=== PATIENT | male | born 1960 | race Two or more races ===

== ENCOUNTER 2016-08-28 13:30 | Inpatient (IN) | payer OTHER ==
--- NOTE | ~2016-08-28 | DS ---
Discharge Summary [id number] [place] [address] NAME: NIKOLE DUVALL : 64 STATUS : DIS IN PAT#: [id number] AGE: 55 ADM/REG DATE : 08/28/16 MR#: [id number] REPORT SERV DATE: 09/03/16 DICTATED BY: EDUARDA BELTRAN DATE: 09/02/16 REPORT STATUS : Draft TRANSCRIBED BY: LUCIA DATE: 09/02/16 ADMISSION DATE: 08/28/2016 DISCHARGE DATE: 09/02/2016 DIAGNOSES: 1. Acute systolic congestive heart failure exacerbation/dilated cardiomyopathy with ejection fraction of 15-20%. 2. Acute pulmonary edema, resolved. 3. Atrial fibrillation with rapid ventricular response. CONSULTANTS: 1. [facility], Dr. Leiva, and Nephrology, Dr. Terrence Wilcox. 2. Hospitalists, Dr. Gino Byrne, Dr. Sofía Thao, and Dr. Beltran. FOLLOWUP: The patient is to follow up with the primary care in two weeks and to follow up with Dr. Leiva, dog licenser, in three weeks. The patient should follow up with Nephrology associates in one week for labs. DISCHARGE MEDICATIONS: Eliquis 5 mg p.o. b.i.d., Lipitor 40 mg p.o. at bedtime, amiodarone 200 mg p.o. b.i.d., Coreg 6.25 mg p.o. b.i.d., Aldactone 25 mg p.o. daily, torsemide 10 mg p.o. b.i.d., albuterol MDI one to two puffs inhaled every four hours p.r.n., and Exelon. HOSPITAL COURSE: Please see H and P and discharge summary from some Gino Byrne. This is a 55 years old male with a past medical history of hypertension, has not followed up with the primary care physician in years, presented to [facility] with the complaint of shortness of breath, dyspnea on exertion, and edema of the lower extremities, found to be hypertensive and admitted with the acute onset of CHF exacerbation with some atrial fibrillation with RVR. The patient recently got over a viral infection prior to his admission. He was transferred to [facility] for cardiac cath per Cardiology recommendations. The patient had findings of moderate to severe LAD and RCA stenosis with a recommendation of medical management per Cardiology staff. He did have an echocardiogram with findings of ejection fraction of 15-20% with severely dilated left ventricle and right ventricle and biatrial dilatation. The patient also had findings of small free-flowing bilateral pleural effusions on CTA while at [facility] but no evidence of PE. The patient was diuresed, however, developed some acute kidney injury and Nephrology was consulted. The patient was seen by Dr. Wilcox, who recommended to withhold on any ARB or KASEY inhibitors considering the patient having low normal blood pressures as well as to preserve renal function. Also his diuretics were decreased. The patient's renal function improved. He was not discharged with an KASEY or ARB secondary to the patient's blood pressure intolerant at this time and also to preserve it, protect renal function. I tend to care for this patient initiating on 09/02/2016. Therefore, please refer to summaries by Dr. Byrne for further details. The patient was also was admitted to Dr. Sofía Thao at [facility]. At the time of discharge, creatinine had decreased from 1.6 down to 1.39, and the patient was approved for discharge by Nephrology as well as Cardiology. Also, the patient was educated on the appropriate AHA diet and daily weight and strict I's and O's at home, and the patient was discharged to home in stable condition to Discharge Summary [address] [address] NAME: NIKOLE DUVALL : 64 STATUS : DIS IN PAT#: [id number] AGE: 55 ADM/REG DATE : 08/28/16 MR#: [id number] REPORT SERV DATE: 09/03/16 DICTATED BY: EDUARDA BELTRAN DATE: 09/02/16 REPORT STATUS : Draft TRANSCRIBED BY: MODL DATE: 09/02/16 follow up as an outpatient. [facility]/LUCIA Eduarda Beltran M.D. / [id number] CC: Eduarda Beltran M.D. Terrence Wilcox M.D. Lawrence Leiva M.D.
--- NOTE | ~2016-08-28 | CN ---
Consultation Report [facility] [address] [place]. [address] NAME: NIKOLE DUVALL : 64 STATUS : ADM IN [facility]#: [id number] AGE: 55 ADM/REG DATE : 08/28/16 MR#: [id number] REPORT SERV DATE: 09/01/16 DICTATED BY: RAJ OLIVIA DATE: 09/01/16 REPORT STATUS : Draft TRANSCRIBED BY: MODL DATE: 09/01/16 NEPHROLOGY CONSULT DATE OF CONSULTATION: 09/01/2016 REASON FOR CONSULT: Worsening kidney function. HISTORY OF PRESENT ILLNESS: Mr. Duvall is a 55-year-old male, who had a creatinine of 1.2 on presentation to [facility] on 08/27/2016. No previous renal disease noted. He presented with a one-week history of URI symptoms with dyspnea, edema, and orthopnea prompting admission. He was found to be quite volume overloaded and on 08/27/[address] angiogram of the chest with 80 mL of contrast. On 08/28/2016, his creatinine was 1.3 at which time he was transferred to [facility] and underwent cardiac catheterization with 50 mL of contrast. This showed nonobstructive CAD with EF of 15% to 20%. On 08/30/2016, creatinine was 1.4, yesterday creatinine 1.5, today creatinine 1.6. He was started on Entresto yesterday in combination with oral Demadex and Aldactone. He remains on IV Lasix twice a day. PAST MEDICAL HISTORY: 1. New diagnosis of acute congestive heart failure and paroxysmal atrial fibrillation. 2. History of asthma. MEDICATIONS: Home medications included Claritin p.r.n., Indocin, and albuterol inhaler. Here in the hospital amiodarone 400 mg b.i.d., Eliquis 5 mg b.i.d., Lipitor 40 mg h.s., Coreg 6.25 mg b.i.d., Lasix 20 mg IV b.i.d., Protonix, potassium, Entresto, Aldactone 12.5 mg daily, Demadex 10 mg daily. FAMILY HISTORY: Noncontributory to present admission. SOCIAL HISTORY: Nonsmoker. . Works at the [employer]. REVIEW OF SYSTEMS: See HPI for details. PHYSICAL EXAMINATION: VITAL SIGNS: Temperature 96.4, pulse 69, respirations 16, blood pressure 99/69, 92% saturation room air. 570 mL of intake with 3550 mL of urine output. GENERAL: He is a very pleasant male, who is awake, alert, oriented, cooperative with the exam. Good historian. Sitting up in a chair. Eating lunch. NEURO: Grossly nonfocal. HEENT: Sclerae without icterus. Conjunctivae not injected. Oropharynx is clear. NECK: JVD 8 to 10 cm. He has faint bilateral crackles at both bases without dyspnea or tachypnea on room air. Consultation Report [place] [id number] [facility] [place]. [address] NAME: NIKOLE DUVALL : 64 STATUS : ADM IN [facility]#: [id number] AGE: 55 ADM/REG DATE : 08/28/16 MR#: [id number] REPORT SERV DATE: 09/01/16 DICTATED BY: RAJ OLIVIA DATE: 09/01/16 REPORT STATUS : Draft TRANSCRIBED BY: LUCIA DATE: 09/01/16 CARDIOVASCULAR: Regular rate and rhythm. 2/6 murmur. ABDOMEN: Soft, nontender, nondistended. Bowel sounds present throughout. No rebound or guarding. EXTREMITIES: He has 1 to 2+ pitting bilateral ankle edema to the knees. SKIN: Without rash. : Deferred. There is no Centeno catheter in place. MUSCULOSKELETAL: Shows no active tenosynovitis or gout. PSYCH: Mood and affect are appropriate. LABORATORY DATA: Sodium 142, potassium 3.7, bicarb 28, BUN 32, creatinine 1.6, GFR 47 mL/minute. Calcium 8.9, magnesium 2.2. BNP 483. Albumin 3.3. White count 6.9, hemoglobin 13.7, platelets 225,000. Echo, EF 15% to 20% with RVSP 40 mmHg. ASSESSMENT AND PLAN: Mr. Duvall has developed acute systolic congestive heart failure likely viral cardiomyopathy in the setting of pulmonary hypertension, paroxysmal atrial fibrillation, hypotension, suspected chronic kidney disease, and superimposed acute kidney injury. Baseline creatinine was 1.2 on admission. I suspect he has multifactorial acute kidney injury related to contrast with CTA angiogram on 08/27/2016 and cardiac catheterization on 08/28/2016 in combination with medications, diuretics, Entresto, and cardiorenal syndrome. Also has relative hypotension, which may be exacerbating renal hypoperfusion. Stop Entresto with relative hypotension. Stop IV Lasix as he is already taking oral Demadex. Increase oral diuretics. His blood pressure at this point is too low for afterload reduction, but would consider hydralazine and nitroglycerin rather than KASEY inhibitor or ARB until renal function has improved. We will defer to the Cardiology Service. Supportive care. Watch labs. No plans for renal imaging at this time. We will follow with you. Appreciate consult. [facility]/MODL Raj Olivia M.D. / [id number] CC: Sofía Thao M.D.
[~2016-08-28 13:30] MED LIST: ALBUTEROL5 INH; ALEVE220 MG PO; CLARIT10 PO; HYZAAR 100/25 T1 TAB PO; INDO50 PO; PROVHFA INH
[2016-08-29 03:31] LABS: BASOPHILS 0.5 %; BASOPHILS ABSOLUTE 0.03 10/3/uL (0.0-0.16); EOSINOPHILS 3.5 %; EOSINOPHILS ABSOLUTE 0.23 10/3/uL (0.0-0.53); HEMATOCRIT 39.6 % (40.0-51.0); HEMOGLOBIN 13.2 g/dL (13.6-17.8); IMMATURE GRANULOCYTES 0.6 %; IMMATURE GRANULOCYTES ABSOLUTE 0.04 10/3/uL (0.0-0.11); LYMPHOCYTES 23.9 %; LYMPHOCYTES ABSOLUTE 1.56 10/3/uL (0.67-4.30); MANUAL DIFF NO %; MEAN CORPUS HGB CONC 33.3 g/dL (32.0-36.0); MEAN CORPUSCULAR HEMOGLOB 31.4 pg (26.0-34.0); MEAN CORPUSCULAR VOLUME 94.3 fL (80-100); MONOCYTES 8.6 %; MONOCYTES ABSOLUTE 0.56 10/3/uL (0.21-1.20); NEUTROPHILS 62.9 %; NEUTROPHILS ABSOLUTE 4.11 10/3/uL (2.02-8.40); PLATELET COUNT 229 10/3/uL (150-400); RBC DISTRIBUTION WIDTH 13.8 % (12.0-16.0); WHITE BLOOD CELLS 6.5 10/3/uL (4.5-10.5)
[2016-08-29 03:41] LABS: ALBUMIN 3.3 G/DL (3.5-5.0); ALKALINE PHOSPHATASE 81 U/L (45-117); BUN (BLOOD UREA NITROGEN) 19 MG/DL (6-23); CALCIUM, SERUM 8.4 MG/DL (8.5-10.4); CHLORIDE, SERUM 105 MMOL/L (96-112); CO2 (CARBON DIOXIDE) 27 MMOL/L (24-34); CREATININE 1.22 MG/DL (0.70-1.30); GFR AFRICAN AMERICAN 78 ML/MIN (>=60); GFR NON AFRICAN AMERICAN 67 ML/MIN (>=60); GLOBULIN 3.2 G/DL (2.5-4.1); GLUCOSE, SERUM 122 MG/DL (60-99); POTASSIUM, SERUM 3.8 MMOL/L (3.5-5.3); SGOT(AST) 29 U/L (5-40); SGPT(ALT) 67 U/L (5-65); SODIUM, SERUM 142 MMOL/L (135-148); TOTAL BILIRUBIN 0.9 MG/DL (0-1.2); TOTAL PROTEIN 6.5 G/DL (6.0-8.5)
[2016-08-30 07:12] LABS: BASOPHILS 0.4 %; BASOPHILS ABSOLUTE 0.03 10/3/uL (0.0-0.16); EOSINOPHILS ABSOLUTE 0.22 10/3/uL (0.0-0.53); HEMATOCRIT 43.4 % (40.0-51.0); HEMOGLOBIN 14.2 g/dL (13.6-17.8); IMMATURE GRANULOCYTES 0.1 %; IMMATURE GRANULOCYTES ABSOLUTE 0.01 10/3/uL (0.0-0.11); LYMPHOCYTES 28.2 %; LYMPHOCYTES ABSOLUTE 2.04 10/3/uL (0.67-4.30); MEAN CORPUS HGB CONC 32.7 g/dL (32.0-36.0); MEAN CORPUSCULAR HEMOGLOB 31.2 pg (26.0-34.0); MEAN CORPUSCULAR VOLUME 95.4 fL (80-100); MEAN PLATELET VOLUME 10.4 fL (9.2-13.0); MONOCYTES 8.6 %; MONOCYTES ABSOLUTE 0.62 10/3/uL (0.21-1.20); NEUTROPHILS 59.7 %; NEUTROPHILS ABSOLUTE 4.31 10/3/uL (2.02-8.40); PLATELET COUNT 242 10/3/uL (150-400); RBC DISTRIBUTION WIDTH 13.8 % (12.0-16.0); RED CELL COUNT 4.55 10/6/uL (4.7-6.1); WHITE BLOOD CELLS 7.2 10/3/uL (4.5-10.5)
[2016-08-30 07:14] LABS: MANUAL DIFF NO %
[2016-08-30 07:17] LABS: BUN (BLOOD UREA NITROGEN) 26 MG/DL (6-23); CALCIUM, SERUM 8.6 MG/DL (8.5-10.4); CHLORIDE, SERUM 105 MMOL/L (96-112); CO2 (CARBON DIOXIDE) 25 MMOL/L (24-34); CREATININE 1.43 MG/DL (0.70-1.30); GFR AFRICAN AMERICAN 64 ML/MIN (>=60); GFR NON AFRICAN AMERICAN 56 ML/MIN (>=60); GLUCOSE, SERUM 128 MG/DL (60-99); POTASSIUM, SERUM 4.3 MMOL/L (3.5-5.3); SODIUM, SERUM 141 MMOL/L (135-148)
[2016-08-31 08:44] LABS: BASOPHILS 0.3 %; BASOPHILS ABSOLUTE 0.02 10/3/uL (0.0-0.16); EOSINOPHILS 2.7 %; EOSINOPHILS ABSOLUTE 0.19 10/3/uL (0.0-0.53); HEMATOCRIT 42.8 % (40.0-51.0); HEMOGLOBIN 13.8 g/dL (13.6-17.8); IMMATURE GRANULOCYTES 0.3 %; IMMATURE GRANULOCYTES ABSOLUTE 0.02 10/3/uL (0.0-0.11); LYMPHOCYTES 23.5 %; LYMPHOCYTES ABSOLUTE 1.66 10/3/uL (0.67-4.30); MEAN CORPUS HGB CONC 32.2 g/dL (32.0-36.0); MEAN CORPUSCULAR HEMOGLOB 30.3 pg (26.0-34.0); MEAN CORPUSCULAR VOLUME 93.9 fL (80-100); MEAN PLATELET VOLUME 10.5 fL (9.2-13.0); MONOCYTES 10.6 %; MONOCYTES ABSOLUTE 0.75 10/3/uL (0.21-1.20); NEUTROPHILS 62.6 %; NEUTROPHILS ABSOLUTE 4.41 10/3/uL (2.02-8.40); PLATELET COUNT 219 10/3/uL (150-400); RBC DISTRIBUTION WIDTH 13.9 % (12.0-16.0); RED CELL COUNT 4.56 10/6/uL (4.7-6.1); WHITE BLOOD CELLS 7.1 10/3/uL (4.5-10.5)
[2016-08-31 08:45] LABS: MANUAL DIFF NO %
[2016-08-31 08:56] LABS: CALCIUM, SERUM 8.8 MG/DL (8.5-10.4); CHLORIDE, SERUM 106 MMOL/L (96-112); CO2 (CARBON DIOXIDE) 28 MMOL/L (24-34); CREATININE 1.48 MG/DL (0.70-1.30); GFR AFRICAN AMERICAN 62 ML/MIN (>=60); GFR NON AFRICAN AMERICAN 53 ML/MIN (>=60); GLUCOSE, SERUM 125 MG/DL (60-99); POTASSIUM, SERUM 4.1 MMOL/L (3.5-5.3); SODIUM, SERUM 144 MMOL/L (135-148)
[2016-08-31 08:57] LABS: BUN (BLOOD UREA NITROGEN) 31 MG/DL (6-23)
[2016-09-01 04:45] LABS: BASOPHILS 0.3 %; BASOPHILS ABSOLUTE 0.02 10/3/uL (0.0-0.16); EOSINOPHILS 2.9 %; HEMOGLOBIN 13.7 g/dL (13.6-17.8); IMMATURE GRANULOCYTES 0.1 %; IMMATURE GRANULOCYTES ABSOLUTE 0.01 10/3/uL (0.0-0.11); LYMPHOCYTES 23.2 %; MEAN CORPUS HGB CONC 32.6 g/dL (32.0-36.0); MEAN CORPUSCULAR HEMOGLOB 30.4 pg (26.0-34.0); MEAN CORPUSCULAR VOLUME 93.1 fL (80-100); MEAN PLATELET VOLUME 10.4 fL (9.2-13.0); MONOCYTES 9.7 %; MONOCYTES ABSOLUTE 0.67 10/3/uL (0.21-1.20); NEUTROPHILS 63.8 %; NEUTROPHILS ABSOLUTE 4.39 10/3/uL (2.02-8.40); PLATELET COUNT 225 10/3/uL (150-400); RBC DISTRIBUTION WIDTH 13.8 % (12.0-16.0); RED CELL COUNT 4.51 10/6/uL (4.7-6.1); WHITE BLOOD CELLS 6.9 10/3/uL (4.5-10.5)
[2016-09-01 04:52] LABS: MANUAL DIFF NO %
[2016-09-01 05:04] LABS: BUN (BLOOD UREA NITROGEN) 32 MG/DL (6-23); CALCIUM, SERUM 8.9 MG/DL (8.5-10.4); CHLORIDE, SERUM 102 MMOL/L (96-112); CO2 (CARBON DIOXIDE) 28 MMOL/L (24-34); CREATININE 1.64 MG/DL (0.70-1.30); GFR AFRICAN AMERICAN 55 ML/MIN (>=60); GFR NON AFRICAN AMERICAN 47 ML/MIN (>=60); GLUCOSE, SERUM 128 MG/DL (60-99); POTASSIUM, SERUM 3.7 MMOL/L (3.5-5.3); SODIUM, SERUM 142 MMOL/L (135-148)
[2016-09-02 06:52] LABS: BASOPHILS 0.4 %; BASOPHILS ABSOLUTE 0.03 10/3/uL (0.0-0.16); EOSINOPHILS 3.9 %; EOSINOPHILS ABSOLUTE 0.28 10/3/uL (0.0-0.53); HEMATOCRIT 45.8 % (40.0-51.0); HEMOGLOBIN 15.2 g/dL (13.6-17.8); IMMATURE GRANULOCYTES 0.3 %; IMMATURE GRANULOCYTES ABSOLUTE 0.02 10/3/uL (0.0-0.11); LYMPHOCYTES 22.2 %; LYMPHOCYTES ABSOLUTE 1.61 10/3/uL (0.67-4.30); MEAN CORPUS HGB CONC 33.2 g/dL (32.0-36.0); MEAN CORPUSCULAR VOLUME 93.5 fL (80-100); MEAN PLATELET VOLUME 10.4 fL (9.2-13.0); MONOCYTES 10.2 %; MONOCYTES ABSOLUTE 0.74 10/3/uL (0.21-1.20); NEUTROPHILS ABSOLUTE 4.58 10/3/uL (2.02-8.40); PLATELET COUNT 216 10/3/uL (150-400); RBC DISTRIBUTION WIDTH 13.3 % (12.0-16.0); WHITE BLOOD CELLS 7.3 10/3/uL (4.5-10.5)
[2016-09-02 06:55] LABS: MANUAL DIFF NO %
[2016-09-02 07:09] LABS: CALCIUM, SERUM 8.8 MG/DL (8.5-10.4); CHLORIDE, SERUM 100 MMOL/L (96-112); CO2 (CARBON DIOXIDE) 28 MMOL/L (24-34); CREATININE 1.39 MG/DL (0.70-1.30); GFR AFRICAN AMERICAN 67 ML/MIN (>=60); GFR NON AFRICAN AMERICAN 57 ML/MIN (>=60); GLUCOSE, SERUM 104 MG/DL (60-99); POTASSIUM, SERUM 3.6 MMOL/L (3.5-5.3); SODIUM, SERUM 140 MMOL/L (135-148)
[2016-09-02 07:10] LABS: BUN (BLOOD UREA NITROGEN) 27 MG/DL (6-23)
[2016-09-02] MEDS ORDERED: ELIQUIS 5 MG TAB5 MG PO (16:10)
[2016-09-02] MEDS ORDERED: LIPITOR40 PO (16:10)
[2016-09-02] MEDS ORDERED: CORDARONE PO (16:11)
[2016-09-02] MEDS ORDERED: COREG6 PO (16:11)
[2016-09-02] MEDS ORDERED: DEMA10T PO (16:12)
[2016-09-02] MEDS ORDERED: SPIRO25 PO (16:12)
== END 2016-09-02 16:54 | disposition home or self-care (01) | DRG 286 ==
LOC: CORLMH 13:30 → SSU2 14:52 → SSU1 17:33 → 5NO 08-29 16:40
PROVIDERS: Internal Medicine
PROC: 4A023N7 Measurement of Cardiac Sampling and Pressure, Left Heart, Percutaneous Approach (ICD-10-PCS; principal; 2016-08-28)
PROC: B2111ZZ Fluoroscopy of Multiple Coronary Arteries using Low Osmolar Contrast (ICD-10-PCS; 2016-08-28)
PROC: B2151ZZ Fluoroscopy of Left Heart using Low Osmolar Contrast (ICD-10-PCS; 2016-08-28)
DX: I25.10 Atherosclerotic heart disease of native coronary artery without angina pectoris (principal); I50.21 Acute systolic (congestive) heart failure; N17.9 Acute kidney failure, unspecified; I27.2 Other secondary pulmonary hypertension; I13.0 Hypertensive heart and chronic kidney disease with heart failure and stage 1 through stage 4 chronic kidney disease, or unspecified chronic kidney disease; I48.0 Paroxysmal atrial fibrillation; N18.9 Chronic kidney disease, unspecified; Z79.51 Long term (current) use of inhaled steroids; I44.5 Left posterior fascicular block
CPT/HCPCS: 71010; 71020; 71275; 80048; 80053; 83735; 83880; 84443; 84484; 85025; 85379; 85610; 85730; 93005; 93458; 96361; 96374; 96375; 99291; A9270-GY; C1769; C1887; C1894; C8929; J0282; J0360; J1160; J1940; J2250; J3010; Q9957; Q9967